=== PATIENT | male | born 1950 | race Caucasian/White ===

== ENCOUNTER 2020-08-26 22:52 | Emergency (ER) | payer MEDICARE ==
[~2020-08-26] VITALS: Ht 180.3 cm; Wt 75.0 kg
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
--- NOTE | 2020-08-26 23:28 | NUR ---
PT TAKEN TO ASSESS VISUAL ACUITIES, PT UNABLE TO SEE 'E' AT 200/20 DEONTE DUE TO CC OF VISION DIFFICULTIES IN R EYE. PT BLIND IN L EYE. PROVIDER NOTIFIED.
--- NOTE | 2020-08-27 00:39 | NUR ---
DR BILL AT BEDSIDE
[2020-08-27 01:49] VITALS: BP 140/90
== END 2020-08-27 02:03 | disposition home or self-care (01) ==
LOC: ED 23:30
DX: T86.840 Corneal transplant rejection (principal); E03.9 Hypothyroidism, unspecified
CPT/HCPCS: 99283